=== PATIENT | female | born 1980 | race Caucasian/White ===

== ENCOUNTER 2022-08-21 10:41 | Outpatient (CLI) | payer OTHER, SELFPAY | END 2022-08-21 10:42 | disposition home or self-care (01) | PROVIDERS: PCP Family Medicine; Visit Provider Family Medicine | DX: Z00.00 Encounter for general adult medical examination without abnormal findings (principal); E03.9 Hypothyroidism, unspecified; E66.9 Obesity, unspecified; R03.0 Elevated blood-pressure reading, without diagnosis of hypertension; Z13.6 Encounter for screening for cardiovascular disorders; Z11.59 Encounter for screening for other viral diseases | CPT/HCPCS: 80053; 80061; 84439; 84443; 86803 ==

== ENCOUNTER 2024-01-09 12:45 | Outpatient (CLI) | payer OTHER, SELFPAY | END 2024-01-09 12:46 | disposition home or self-care (01) | PROVIDERS: PCP Family Medicine; Visit Provider Family Medicine | DX: E03.9 Hypothyroidism, unspecified (principal); I10 Essential (primary) hypertension; Z13.220 Encounter for screening for lipoid disorders | CPT/HCPCS: 80053; 80061; 82043; 82570; 84443; 86376 ==